=== PATIENT | female | born 1985 | race Hispanic/Latino ===

== ENCOUNTER 2017-09-25 17:53 | Outpatient (CLI) | payer OTHER ==
[2017-09-25 19:18] LABS: Bilirubin,Urine NEG (Negative); Blood,Urine NEG (Negative); Color,Urine Yellow (Yellow); Mucus,Urine FEW /HPF; Protein,Urine <15 mg/dL mg/dL (Negative); RBC,Urine < 1.0 /HPF (0.0-6.0); Urobilinogen,Urine < 2.0 mg/dL (<2.0)
[2017-09-25 19:31] LABS: Hematocrit 30.5 % (30.3-42.9); Hemoglobin 10.6 gm/dl (10.1-14.3); Mean Corpuscular HGB Conc 35 % (30-34); Mean Corpuscular Hemoglobin 31 pg (28-32); Mean Corpuscular Volume 89 fl (79-97); Platelet Count 269 K/mm3 (140-440); Red Blood Count 3.44 M/mm3 (3.65-5.03); Red Cell Distribution Width 14.7 % (13.2-15.2)
[2017-09-25 19:44] LABS: Alanine Aminotransferase 55 units/L (7-56)
[2017-09-25 20:22] VITALS: BP 110/71
== END 2017-09-25 20:40 | disposition home or self-care (01) ==
LOC: TRG 17:53
PROVIDERS: ATTEND Obstetrics & Gynecology
DX: O47.1 False labor at or after 37 completed weeks of gestation (principal); Z3A.38 38 weeks gestation of pregnancy; O99.333 Smoking (tobacco) complicating pregnancy, third trimester
CPT/HCPCS: 36415; 59025; 81001; 82565; 83615; 84450; 84460; 85027

== ENCOUNTER 2017-09-28 23:05 | Outpatient (CLI) | payer OTHER ==
[2017-09-28 23:40] VITALS: BP 127/85
--- NOTE | 2017-09-29 00:42 | Ultrasound Report ---
FINAL REPORT PROCEDURE: US OB BPP WO NON-STRESS TECHNIQUE: Sonographic evaluation for breathing, movement, tone, and amniotic fluid volume was performed. HISTORY: Decreased motion. COMPARISON: No prior studies are available for comparison. FINDINGS: Given clinical age: 39 weeks. position: Cephalic. heart rate: 140 beats per minute Amniotic fluid volume: Normal-score 2. At least one vertical pocket > 2 cm or more in vertical axis. One measured vertical pocket is 4.47 cm. breathing: Normal-score 2. movement: Normal-score 2. tone: Normal. Score: 8 of 8. IMPRESSION: Normal biophysical profile.
== END 2017-09-29 00:38 | disposition home or self-care (01) ==
LOC: TRG 23:05
PROVIDERS: ATTEND Obstetrics & Gynecology
DX: O47.1 False labor at or after 37 completed weeks of gestation (principal); O99.333 Smoking (tobacco) complicating pregnancy, third trimester; Z3A.38 38 weeks gestation of pregnancy
CPT/HCPCS: 59025; 76819

== ENCOUNTER 2017-10-11 18:47 | Inpatient (IN) | payer OTHER ==
[2017-10-11] MEDS ORDERED: SUBLIMAZE IV PRN (19:48)
[2017-10-11] MEDS ORDERED: STADOL IV PRN (19:48)
[2017-10-11] MEDS ORDERED: XYLOCAINE 2% INFILTRATI ONE (19:48)
[2017-10-11] MEDS ORDERED: NARCAN 0.4 MG/1 ML IV PRN (19:48)
[2017-10-11] MEDS ORDERED: ePHEDrine SULFATE IV PRN (19:48)
[2017-10-11] MEDS ORDERED: BRETHINE IVP PRN (19:48)
[2017-10-11] MEDS ORDERED: POLYCILLIN/NS 2 GM/100 ML 2 GM/100 ML BAG IV ONE (19:48)
[2017-10-11] MEDS ORDERED: MINERAL OIL PO PRN (19:48)
[2017-10-11] MEDS ORDERED: ZOFRAN IV PRN (19:48)
[2017-10-11] MEDS ORDERED: BRETHINE SUB-Q PRN (19:48)
[2017-10-11] MEDS ORDERED: NITRATEST PAPER MC ONE (20:00)
[2017-10-11] MEDS ORDERED: PITOCin/NS 30 UNIT/500ML 30 UNITS/500 ML BAG IV SCH (20:00)
[2017-10-11] MEDS ORDERED: PITOCin/NS 20 UNIT/1000ML DRIP 20 UNITS/1,000 ML BAG IV SCH (20:00)
--- NOTE | 2017-10-11 20:02 | History and Physical Report ---
History of Present Illness Date of examination: 10/11/17 Chief complaint: SROM at 2030 last pm and contractions History of present illness: Past History : 7 Living Children: 0 Spont. 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 of genital herpes: no Partner hx. of genital herpes: no Varicella/Chicken Pox Status: Previous Disease TB Risk: no Genetic History Congenital Heart Defect: Mom: no Dad: no Navin Disease: Mom: no Dad: no Thalassemia Mom: no Dad: no Neural Tube Defect Mom: no Dad: no Down's Syndrome Mom: no Dad: no Rolando-Sachs Mom: no Dad: no Sickle Cell Disease/Trait Mom: no Dad: no Hemophilia Mom: no Dad: no Muscular Dystrophy Mom: no Dad: no Cystic Fibrosis Mom: no Dad: no [place] Chorea Mom: no Dad: no Mental Retardation Mom: no Dad: no Fragile X Mom: no Dad: no Other Genetic/Chromosomal Disorder Mom: no Dad: no Child w/other defect Mom: no Dad: no Comments/Counseling: FOB has a child with Autism Enviromental Exposures Xray Exposure: no Medication, drug, or alcohol use since LMP: no Chemical/Other Exposure: no Exposure to Cat Liter: no Hx of Parvovirus (Fifth Disease): no Occupational Exposure to Children: none Active Medications (reviewed today): PROMETHAZINE HCL 25 MG RECTAL SUPPOSITORY (PROMETHAZINE HCL) 1 per rectum q6hrs prn PROMETHAZINE HCL 12.5 MG ORAL TABLET (PROMETHAZINE HCL) 1 po q 6 hrs prn nausea PROZAC () ADDERALL () Current Allergies (reviewed today): No known allergies Past History - Obstetrical History Expected Date of Delivery: 10/08/17 Actual Gestation: 40 Week(s) 3 Day(s) : 7 Spontaneous Abortions: 6 Medications and Allergies Allergies Allergy/AdvReac Type Severity Reaction Status Date / Time coconut Allergy Anaphylaxis Unverified 10/11/17 18:48 Home Medications Medication Instructions Recorded Confirmed Last Taken Type Vit-Fe Fumar-FA [ 1 tab PO QDAY 09/25/17 09/25/17 09/25/17 History Vitamin] Active Meds: Active Medications Butorphanol Tartrate (Stadol) 2 mg IV Q2H PRN PRN Reason: Pain , Severe (7-10) Ephedrine Sulfate (Ephedrine Sulfate) 10 mg IV Q2M PRN PRN Reason: Hypotension Fentanyl (Sublimaze) 100 mcg IV Q2H PRN PRN Reason: Labor Pain Ampicillin Sodium (Ampicillin/Ns 1 Gm/50 Ml) 1 gm in 50 mls @ 100 mls/hr IV Q4HR MOODY; Protocol Ampicillin Sodium (Polycillin/Ns 2 Gm/100 Ml) 2 gm in 100 mls @ 100 mls/hr IV ONCE ONE; Protocol Stop: 10/11/17 20:47 Lactated Ringer's (Lactated Ringers) 1,000 mls @ 125 mls/hr IV DIRECT MOODY Oxytocin/Sodium Chloride (Pitocin/Ns 20 Unit/1000ml Drip) 20 units in 1,000 mls @ 125 mls/hr IV DIRECT MOODY Oxytocin/Sodium Chloride (Pitocin/Ns 30 Unit/500ml) 30 units in 500 mls @ 1 mls /hr IV TITR MOODY; Protocol Lidocaine (Xylocaine 2%) 20 ml INFILTRATI ONCE ONE Stop: 10/11/17 19:49 Mineral Oil (Mineral Oil) 30 ml PO QHS PRN PRN Reason: Constipation Naloxone HCl (Narcan 0.4 Mg/1 Ml) 0.1 mg IV Q2MIN PRN PRN Reason: Res Rate </= 8 or 02 SAT < 92% Ondansetron HCl (Zofran) 4 mg IV Q8H PRN PRN Reason: Nausea And Vomiting Review of Systems All systems: negative Genitourinary: leakage of fluid, contractions - Vital Signs Vital signs: Vital Signs Pulse Pulse Ox 110 H 98 10/11/17 19:23 10/11/17 19:23 Temp Pulse Resp BP Pulse Ox 97.7 F 112 H 20 137/81 98 10/11/17 19:26 10/11/17 19:38 10/11/17 19:26 10/11/17 19:33 10/11/17 19:38 - Physical Exam Breasts: Positive: deferred Lungs: Positive: Normal air movement Genitourinary (Female): Positive: normal external genitalia, normal perenium Vulva: both: normal Vagina: Positive: normal moisture, other (+fern) Uterus: Positive: enlarged Anus/Rectum: Positive: normal perianal skin Extremities: Positive: normal. Negative: tenderness, edema Deep Tendon Reflex Grade: Normal +2 - Obstetrical FHR: category 1 Cervical Dilatation: 1.5 Cervical Effacement Percentage: 30 station: -1 Uterine Contraction Frequency (min): 7-8 Uterine Contraction Pattern: Irregular Results All other labs normal. Assessment and Plan - Patient Problems (1) 40 weeks gestation of Current Visit: Yes Status: Acute (2) Prolonged rupture of membranes Current Visit: Yes Status: Acute Plan to address problem: Will ripened cervix with low dose pitocin Will start Ampicillin since prolonged ROM and unknown GBS (3) Bipolar disease during Current Visit: Yes Status: Chronic (4) Smoker Current Visit: Yes Status: Chronic (5) History of marijuana use Current Visit: Yes Status: Acute Plan to address problem: She's was informed a UDS will be performed (6) Elevated blood pressure reading Current Visit: Yes Status: Acute Plan to address problem: PIH labs to be performed
[2017-10-11 20:10] LABS: Hematocrit 30.7 % (30.3-42.9); Hemoglobin 10.9 gm/dl (10.1-14.3); Mean Corpuscular HGB Conc 35 % (30-34); Mean Corpuscular Hemoglobin 32 pg (28-32); Mean Corpuscular Volume 89 fl (79-97); Platelet Count 268 K/mm3 (140-440); Red Blood Count 3.45 M/mm3 (3.65-5.03); Red Cell Distribution Width 14.6 % (13.2-15.2)
[2017-10-11 20:22] LABS: Bacteria,Urine 1+ /HPF (Negative); Bilirubin,Urine NEG (Negative); Blood,Urine NEG (Negative); Color,Urine Yellow (Yellow); Mucus,Urine FEW /HPF; Protein,Urine <15 mg/dL mg/dL (Negative); Urobilinogen,Urine < 2.0 mg/dL (<2.0)
[2017-10-11] MEDS: LACTATED RINGERS 1,000 ML IV SCH (20:26)
[2017-10-11 20:29] LABS: Amphetamine Screen,Urine PRESUMPTIVE NEGATIVE; Benzodiazepines Screen,Urine PRESUMPTIVE NEGATIVE; Cannabinoid Screen,Urine PRESUMPTIVE NEGATIVE; Cocaine Screen,Urine PRESUMPTIVE NEGATIVE; Methadone Screen,Urine PRESUMPTIVE NEGATIVE; Opiate Screen,Urine PRESUMPTIVE NEGATIVE
[2017-10-11 20:30] LABS: Alanine Aminotransferase 94 units/L (7-56); Uric Acid 6.7 mg/dL (3.5-7.6)
[2017-10-11] MEDS ORDERED: BICITRA PO ONE (22:37)
[2017-10-12] MEDS: AMPICILLIN/NS 1 GM/50 ML 1 GM/50 ML BAG IV SCH ×3 (00:33→09:13)
[2017-10-12] MEDS ORDERED: AMBIEN PO PRN (00:39)
[2017-10-12] MEDS ORDERED: PITOCin/NS 30 UNIT/500ML 30 UNITS/500 ML BAG IV SCH (05:00)
--- NOTE | 2017-10-12 05:17 | Progress Note ---
Assessment and Plan - Patient Problems (1) Prolonged rupture of membranes Onset Date: ~10/12/17 Current Visit: Yes Status: Acute Plan to address problem: Pt OOB to void. SVE 3,90,-1 Meconium stained fluid noted ISE/IUPC placed. Pt made aware of findings and that NICU will attend the delivery. Pit increased per protocol. Re-eval as needed. Subjective - Subjective Date of service: 10/12/17 (OOB to toilet) Patient reports: loss of fluid (moderate meconium), movement normal Objective - Vital Signs Vital Signs: Vital Signs - 12hr 10/11/17 10/11/17 10/11/17 19:23 19:24 19:26 Temperature 97.7 F Pulse Rate 110 H 109 H Respiratory 20 Rate Blood Pressure 135/94 O2 Sat by Pulse 98 Oximetry 10/11/17 10/11/17 10/11/17 19:28 19:29 19:33 Temperature Pulse Rate 108 H 113 H 108 H Respiratory Rate Blood Pressure 142/87 137/81 O2 Sat by Pulse 99 98 Oximetry 10/11/17 10/11/17 10/11/17 19:38 20:10 20:25 Temperature 97.8 F Pulse Rate 112 H 112 H Respiratory Rate Blood Pressure 130/75 O2 Sat by Pulse 98 Oximetry 10/11/17 10/11/17 10/12/17 23:20 23:22 03:24 Temperature 97.6 F Pulse Rate 91 H 83 Respiratory Rate Blood Pressure 134/73 127/80 O2 Sat by Pulse Oximetry - Exam Breasts: deferred Cardiovascular: Regular rate Lungs: Normal air movement Abdomen: Present: normal appearance, soft. Absent: distention, tenderness Uterus: Present: normal FHR: auscultation normal, category 1 Uterine Contraction Monitor Mode: Internal Cervical Dilatation: 3 (internals placed) Cervical Effacement Percentage: 90 station: -1 Uterine Contraction Pattern: Regular Uterine Tone Measurement Phase: Resting Uterine Contraction Intensity: Mild - Labs Labs: Abnormal Labs 10/11/17 10/11/17 10/11/17 19:40 19:40 19:40 RBC 3.45 L MCHC 35 H Creatinine 0.6 L AST 82 H ALT 94 H Lactate Dehydrogenase 283 H Urine WBC (Auto) 16.0 H Laboratory Results - last 24 hr 10/11/17 10/11/17 10/11/17 19:40 19:40 19:40 WBC 8.1 RBC 3.45 L Hgb 10.9 Hct 30.7 MCV 89 MCH 32 MCHC 35 H RDW 14.6 Plt Count 268 Creatinine Estimated GFR Uric Acid AST ALT Lactate Dehydrogenase Urine Color Urine Turbidity Urine pH Ur Specific [place] Urine Protein Urine Glucose (UA) Urine Ketones Urine Blood Urine Nitrite Urine Bilirubin Urine Urobilinogen Ur Leukocyte Esterase Urine WBC (Auto) Urine RBC (Auto) U Epithel Cells (Auto) Urine Bacteria (Auto) Urine Mucus Urine Opiates Screen Urine Methadone Screen Ur Barbiturates Screen Ur Phencyclidine Scrn Ur Amphetamines Screen U Benzodiazepines Scrn Urine Cocaine Screen U Marijuana (THC) Screen Drugs of Abuse Note HIV 1&2 Antibody Rapid Non react HIV P24 Antigen Non react Blood Type O POSITIVE Antibody Screen Negative 10/11/17 10/11/17 10/11/17 19:40 19:40 19:40 WBC RBC Hgb Hct MCV MCH MCHC RDW Plt Count Creatinine 0.6 L Estimated GFR > 60 Uric Acid 6.7 AST 82 H ALT 94 H Lactate Dehydrogenase 283 H Urine Color Yellow Urine Turbidity Clear Urine pH 5.0 Ur Specific [place] 1.020 Urine Protein <15 mg/dl Urine Glucose (UA) >=500 Urine Ketones Neg Urine Blood Neg Urine Nitrite Neg Urine Bilirubin Neg Urine Urobilinogen < 2.0 Ur Leukocyte Esterase Mod Urine WBC (Auto) 16.0 H Urine RBC (Auto) 4.0 U Epithel Cells (Auto) 8.0 Urine Bacteria (Auto) 1+ Urine Mucus Few Urine Opiates Screen Presumptive negative Urine Methadone Screen Presumptive negative Ur Barbiturates Screen Presumptive negative Ur Phencyclidine Scrn Presumptive negative Ur Amphetamines Screen Presumptive negative U Benzodiazepines Scrn Presumptive negative Urine Cocaine Screen Presumptive negative U Marijuana (THC) Screen Presumptive negative Drugs of Abuse Note Disclamer HIV 1&2 Antibody Rapid HIV P24 Antigen Blood Type Antibody Screen
[2017-10-12] MEDS ORDERED: NARCAN 2 MG/2 ML IV PRN (06:25)
[2017-10-12] MEDS ORDERED: ePHEDrine SULFATE IV PRN (06:25)
--- NOTE | 2017-10-12 06:26 | Anesthesia Consultation ---
Anesthesia Consult and Med Hx Date of service: 10/12/17 - Airway Anesthetic Teeth Evaluation: Good ROM Head & Neck: Adequate Mental/Hyoid Distance: Adequate Mallampati Class: Class II Intubation Access Assessment: Probably Good - Pulmonary Exam CTA: Yes - Cardiac Exam Cardiac Exam: RRR - Pre-Operative Health Status ASA Pre-Surgery Classification: ASA2 Proposed Anesthetic Plan: Epidural - Pulmonary Hx Asthma: No - Cardiovascular System Hx Hypertension: No - Central Nervous System Hx Seizures: No Hx Psychiatric Problems: Yes (depression) - Endocrine Hx Renal Disease: No Hx Hypothyroidism: No Hx Hyperthyroidism: No - Hematic Hx Anemia: No Hx Sickle Cell Disease: No - Other Systems Hx Alcohol Use: No
[2017-10-12] MEDS ORDERED: fentaNYL-BUPIV 2 MCG/ML-0.125% 200 MCG/100 ML BAG EPIDURAL SCH (07:00)
[2017-10-12] MEDS ORDERED: TYLENOL PO PRN ×5 (07:36→16:03)
--- NOTE | 2017-10-12 08:55 | Progress Note ---
Assessment and Plan - Patient Problems (1) Prolonged rupture of membranes Onset Date: ~10/12/17 Current Visit: Yes Status: Acute Plan to address problem: Pt comfortable with epidural Pit @ 24mu FHR Cat 1 SVE No chg X 2 hours. Pt aware of concerns @ lack of cervical chg. Will cont. POC and re-eval 1 hour. Subjective - Subjective Date of service: 10/12/17 (no c/o voiced) Principal diagnosis: IUP @ 40 weeks Prolong rupture of membranes Meconium Patient reports: loss of fluid (moderate meconium), movement normal Objective - Vital Signs Vital Signs: Vital Signs - 12hr 10/11/17 10/11/17 10/12/17 23:20 23:22 03:24 Temperature 97.6 F Pulse Rate 91 H 83 Respiratory Rate Blood Pressure 134/73 127/80 Blood Pressure [Right] O2 Sat by Pulse Oximetry 10/12/17 10/12/17 10/12/17 05:25 05:35 06:35 Temperature 97.9 F Pulse Rate 88 92 H Respiratory 18 Rate Blood Pressure 132/81 Blood Pressure [Right] O2 Sat by Pulse 100 Oximetry 10/12/17 10/12/17 10/12/17 06:36 06:39 06:40 Temperature Pulse Rate 90 91 H 91 H Respiratory Rate Blood Pressure 139/90 133/95 Blood Pressure [Right] O2 Sat by Pulse 89 100 Oximetry 10/12/17 10/12/17 10/12/17 06:41 06:43 06:45 Temperature 97.6 F Pulse Rate 87 86 Respiratory 18 Rate Blood Pressure 134/96 140/101 Blood Pressure [Right] O2 Sat by Pulse Oximetry 10/12/17 10/12/17 10/12/17 06:46 06:49 06:51 Temperature Pulse Rate 92 H 87 89 Respiratory Rate Blood Pressure 143/95 144/99 155/100 Blood Pressure [Right] O2 Sat by Pulse 100 100 Oximetry 10/12/17 10/12/17 10/12/17 06:53 06:57 06:58 Temperature Pulse Rate 27 L 85 86 Respiratory Rate Blood Pressure 128/72 Blood Pressure [Right] O2 Sat by Pulse 85 93 Oximetry 10/12/17 10/12/17 10/12/17 06:59 07:01 07:03 Temperature Pulse Rate 86 90 85 Respiratory Rate Blood Pressure 119/66 115/60 120/68 Blood Pressure [Right] O2 Sat by Pulse 100 Oximetry 10/12/17 10/12/17 10/12/17 07:05 07:07 07:08 Temperature Pulse Rate 83 85 85 Respiratory Rate Blood Pressure 120/72 130/83 Blood Pressure [Right] O2 Sat by Pulse 100 Oximetry 10/12/17 10/12/17 10/12/17 07:09 07:11 07:13 Temperature Pulse Rate 84 83 83 Respiratory Rate Blood Pressure 131/80 134/87 137/80 Blood Pressure [Right] O2 Sat by Pulse 100 Oximetry 10/12/17 10/12/17 10/12/17 07:16 07:17 07:18 Temperature Pulse Rate 90 84 85 Respiratory Rate Blood Pressure 111/75 118/75 Blood Pressure [Right] O2 Sat by Pulse 100 Oximetry 10/12/17 10/12/17 10/12/17 07:19 07:21 07:23 Temperature Pulse Rate 83 86 96 H Respiratory Rate Blood Pressure 119/79 117/67 116/73 Blood Pressure [Right] O2 Sat by Pulse 100 Oximetry 10/12/17 10/12/17 10/12/17 07:28 07:33 07:38 Temperature Pulse Rate 86 85 93 H Respiratory Rate Blood Pressure Blood Pressure [Right] O2 Sat by Pulse 100 100 100 Oximetry 10/12/17 10/12/17 10/12/17 07:43 07:48 07:52 Temperature 96.9 F L Pulse Rate 85 86 85 Respiratory 20 Rate Blood Pressure Blood Pressure 116/82 [Right] O2 Sat by Pulse 100 100 98 Oximetry - Exam Breasts: deferred Cardiovascular: Regular rate Lungs: Normal air movement Abdomen: Present: normal appearance, soft. Absent: distention, tenderness Uterus: Present: normal FHR: auscultation normal, category 1 Uterine Contraction Monitor Mode: Internal Cervical Dilatation: 3 (No chg) Cervical Effacement Percentage: 90 station: -1 Uterine Contraction Pattern: Regular Uterine Tone Measurement Phase: Resting Uterine Contraction Intensity: Moderate Extremities: normal Deep Tendon Reflex Grade: Normal +2 - Labs Labs: Abnormal Labs 10/11/17 10/11/17 10/11/17 19:40 19:40 19:40 RBC 3.45 L MCHC 35 H Creatinine 0.6 L AST 82 H ALT 94 H Lactate Dehydrogenase 283 H Urine WBC (Auto) 16.0 H Laboratory Results - last 24 hr 10/11/17 10/11/17 10/11/17 19:40 19:40 19:40 WBC 8.1 RBC 3.45 L Hgb 10.9 Hct 30.7 MCV 89 MCH 32 MCHC 35 H RDW 14.6 Plt Count 268 Creatinine Estimated GFR Uric Acid AST ALT Lactate Dehydrogenase Urine Color Urine Turbidity Urine pH Ur Specific [place] Urine Protein Urine Glucose (UA) Urine Ketones Urine Blood Urine Nitrite Urine Bilirubin Urine Urobilinogen Ur Leukocyte Esterase Urine WBC (Auto) Urine RBC (Auto) U Epithel Cells (Auto) Urine Bacteria (Auto) Urine Mucus Urine Opiates Screen Urine Methadone Screen Ur Barbiturates Screen Ur Phencyclidine Scrn Ur Amphetamines Screen U Benzodiazepines Scrn Urine Cocaine Screen U Marijuana (THC) Screen Drugs of Abuse Note HIV 1&2 Antibody Rapid Non react HIV P24 Antigen Non react Blood Type O POSITIVE Antibody Screen Negative 10/11/17 10/11/17 10/11/17 19:40 19:40 19:40 WBC RBC Hgb Hct MCV MCH MCHC RDW Plt Count Creatinine 0.6 L Estimated GFR > 60 Uric Acid 6.7 AST 82 H ALT 94 H Lactate Dehydrogenase 283 H Urine Color Yellow Urine Turbidity Clear Urine pH 5.0 Ur Specific [place] 1.020 Urine Protein <15 mg/dl Urine Glucose (UA) >=500 Urine Ketones Neg Urine Blood Neg Urine Nitrite Neg Urine Bilirubin Neg Urine Urobilinogen < 2.0 Ur Leukocyte Esterase Mod Urine WBC (Auto) 16.0 H Urine RBC (Auto) 4.0 U Epithel Cells (Auto) 8.0 Urine Bacteria (Auto) 1+ Urine Mucus Few Urine Opiates Screen Presumptive negative Urine Methadone Screen Presumptive negative Ur Barbiturates Screen Presumptive negative Ur Phencyclidine Scrn Presumptive negative Ur Amphetamines Screen Presumptive negative U Benzodiazepines Scrn Presumptive negative Urine Cocaine Screen Presumptive negative U Marijuana (THC) Screen Presumptive negative Drugs of Abuse Note Disclamer HIV 1&2 Antibody Rapid HIV P24 Antigen Blood Type Antibody Screen
--- NOTE | 2017-10-12 10:52 | Progress Note ---
Assessment and Plan Pt c/o pain and pressure. SVE 7,100,0 Pit @ 32mu Epidural bolus called for Re- eval as needed. - Patient Problems (1) Prolonged rupture of membranes Onset Date: ~10/12/17 Current Visit: Yes Status: Acute Subjective - Subjective Date of service: 10/12/17 (pt c/o pain and pressure) Principal diagnosis: IUP @ 40 weeks Prolong rupture of membranes Meconium Patient reports: loss of fluid (moderate meconium), movement normal Objective - Vital Signs Vital Signs: Vital Signs - 12hr 10/11/17 10/11/17 10/12/17 23:20 23:22 03:24 Temperature 97.6 F Pulse Rate 91 H 83 Respiratory Rate Blood Pressure 134/73 127/80 Blood Pressure [Right] O2 Sat by Pulse Oximetry 10/12/17 10/12/17 10/12/17 05:25 05:35 06:35 Temperature 97.9 F Pulse Rate 88 92 H Respiratory 18 Rate Blood Pressure 132/81 Blood Pressure [Right] O2 Sat by Pulse 100 Oximetry 10/12/17 10/12/17 10/12/17 06:36 06:39 06:40 Temperature Pulse Rate 90 91 H 91 H Respiratory Rate Blood Pressure 139/90 133/95 Blood Pressure [Right] O2 Sat by Pulse 89 100 Oximetry 10/12/17 10/12/17 10/12/17 06:41 06:43 06:45 Temperature 97.6 F Pulse Rate 87 86 Respiratory 18 Rate Blood Pressure 134/96 140/101 Blood Pressure [Right] O2 Sat by Pulse Oximetry 10/12/17 10/12/17 10/12/17 06:46 06:49 06:51 Temperature Pulse Rate 92 H 87 89 Respiratory Rate Blood Pressure 143/95 144/99 155/100 Blood Pressure [Right] O2 Sat by Pulse 100 100 Oximetry 10/12/17 10/12/17 10/12/17 06:53 06:57 06:58 Temperature Pulse Rate 27 L 85 86 Respiratory Rate Blood Pressure 128/72 Blood Pressure [Right] O2 Sat by Pulse 85 93 Oximetry 10/12/17 10/12/17 10/12/17 06:59 07:01 07:03 Temperature Pulse Rate 86 90 85 Respiratory Rate Blood Pressure 119/66 115/60 120/68 Blood Pressure [Right] O2 Sat by Pulse 100 Oximetry 10/12/17 10/12/17 10/12/17 07:05 07:07 07:08 Temperature Pulse Rate 83 85 85 Respiratory Rate Blood Pressure 120/72 130/83 Blood Pressure [Right] O2 Sat by Pulse 100 Oximetry 10/12/17 10/12/17 10/12/17 07:09 07:11 07:13 Temperature Pulse Rate 84 83 83 Respiratory Rate Blood Pressure 131/80 134/87 137/80 Blood Pressure [Right] O2 Sat by Pulse 100 Oximetry 10/12/17 10/12/17 10/12/17 07:16 07:17 07:18 Temperature Pulse Rate 90 84 85 Respiratory Rate Blood Pressure 111/75 118/75 Blood Pressure [Right] O2 Sat by Pulse 100 Oximetry 10/12/17 10/12/17 10/12/17 07:19 07:21 07:23 Temperature Pulse Rate 83 86 96 H Respiratory Rate Blood Pressure 119/79 117/67 116/73 Blood Pressure [Right] O2 Sat by Pulse 100 Oximetry 10/12/17 10/12/17 10/12/17 07:28 07:33 07:38 Temperature Pulse Rate 86 85 93 H Respiratory Rate Blood Pressure Blood Pressure [Right] O2 Sat by Pulse 100 100 100 Oximetry 10/12/17 10/12/17 10/12/17 07:43 07:48 07:52 Temperature 96.9 F L Pulse Rate 85 86 85 Respiratory 20 Rate Blood Pressure Blood Pressure 116/82 [Right] O2 Sat by Pulse 100 100 98 Oximetry 10/12/17 10/12/17 10/12/17 10:11 10:13 10:18 Temperature Pulse Rate 81 76 80 Respiratory Rate Blood Pressure 120/78 114/79 116/67 Blood Pressure [Right] O2 Sat by Pulse Oximetry 10/12/17 10/12/17 10/12/17 10:21 10:26 10:27 Temperature Pulse Rate 75 81 85 Respiratory Rate Blood Pressure 122/76 117/71 115/70 Blood Pressure [Right] O2 Sat by Pulse Oximetry 10/12/17 10/12/17 10/12/17 10:29 10:30 10:31 Temperature Pulse Rate 83 81 83 Respiratory Rate Blood Pressure 124/73 126/83 Blood Pressure [Right] O2 Sat by Pulse 100 Oximetry 10/12/17 10/12/17 10/12/17 10:33 10:35 10:37 Temperature Pulse Rate 82 78 79 Respiratory Rate Blood Pressure 117/75 124/80 120/84 Blood Pressure [Right] O2 Sat by Pulse 99 Oximetry 10/12/17 10/12/17 10/12/17 10:39 10:40 10:41 Temperature Pulse Rate 77 83 81 Respiratory Rate Blood Pressure 123/75 124/78 Blood Pressure [Right] O2 Sat by Pulse 100 Oximetry 10/12/17 10/12/17 10/12/17 10:44 10:45 10:47 Temperature Pulse Rate 57 L 81 80 Respiratory Rate Blood Pressure 124/75 Blood Pressure [Right] O2 Sat by Pulse 83 L 100 Oximetry 10/12/17 10/12/17 10/12/17 10:49 10:50 10:51 Temperature Pulse Rate 82 84 83 Respiratory Rate Blood Pressure 126/81 127/81 Blood Pressure [Right] O2 Sat by Pulse 100 Oximetry 10/12/17 10/12/17 10:52 10:53 Temperature Pulse Rate 86 86 Respiratory Rate Blood Pressure 132/86 Blood Pressure [Right] O2 Sat by Pulse 86 Oximetry - Exam Breasts: deferred Cardiovascular: Regular rate Lungs: Normal air movement Abdomen: Present: normal appearance, soft. Absent: distention, tenderness Uterus: Present: normal FHR: auscultation normal, category 1 Uterine Contraction Monitor Mode: Internal Cervical Dilatation: 7 Cervical Effacement Percentage: 100 station: 0 Uterine Contraction Pattern: Regular Uterine Tone Measurement Phase: Resting Uterine Contraction Intensity: Moderate Extremities: edema Deep Tendon Reflex Grade: Normal +2 - Labs Labs: Abnormal Labs 10/11/17 10/11/17 10/11/17 19:40 19:40 19:40 RBC 3.45 L MCHC 35 H Creatinine 0.6 L AST 82 H ALT 94 H Lactate Dehydrogenase 283 H Urine WBC (Auto) 16.0 H Laboratory Results - last 24 hr 10/11/17 10/11/17 10/11/17 19:40 19:40 19:40 WBC 8.1 RBC 3.45 L Hgb 10.9 Hct 30.7 MCV 89 MCH 32 MCHC 35 H RDW 14.6 Plt Count 268 Creatinine Estimated GFR POC Glucose Uric Acid AST ALT Lactate Dehydrogenase Urine Color Urine Turbidity Urine pH Ur Specific [place] Urine Protein Urine Glucose (UA) Urine Ketones Urine Blood Urine Nitrite Urine Bilirubin Urine Urobilinogen Ur Leukocyte Esterase Urine WBC (Auto) Urine RBC (Auto) U Epithel Cells (Auto) Urine Bacteria (Auto) Urine Mucus Urine Opiates Screen Urine Methadone Screen Ur Barbiturates Screen Ur Phencyclidine Scrn Ur Amphetamines Screen U Benzodiazepines Scrn Urine Cocaine Screen U Marijuana (THC) Screen Drugs of Abuse Note HIV 1&2 Antibody Rapid Non react HIV P24 Antigen Non react Blood Type O POSITIVE Antibody Screen Negative 10/11/17 10/11/17 10/11/17 19:40 19:40 19:40 WBC RBC Hgb Hct MCV MCH MCHC RDW Plt Count Creatinine 0.6 L Estimated GFR > 60 POC Glucose Uric Acid 6.7 AST 82 H ALT 94 H Lactate Dehydrogenase 283 H Urine Color Yellow Urine Turbidity Clear Urine pH 5.0 Ur Specific [place] 1.020 Urine Protein <15 mg/dl Urine Glucose (UA) >=500 Urine Ketones Neg Urine Blood Neg Urine Nitrite Neg Urine Bilirubin Neg Urine Urobilinogen < 2.0 Ur Leukocyte Esterase Mod Urine WBC (Auto) 16.0 H Urine RBC (Auto) 4.0 U Epithel Cells (Auto) 8.0 Urine Bacteria (Auto) 1+ Urine Mucus Few Urine Opiates Screen Presumptive negative Urine Methadone Screen Presumptive negative Ur Barbiturates Screen Presumptive negative Ur Phencyclidine Scrn Presumptive negative Ur Amphetamines Screen Presumptive negative U Benzodiazepines Scrn Presumptive negative Urine Cocaine Screen Presumptive negative U Marijuana (THC) Screen Presumptive negative Drugs of Abuse Note Disclamer HIV 1&2 Antibody Rapid HIV P24 Antigen Blood Type Antibody Screen 10/12/17 09:13 WBC RBC Hgb Hct MCV MCH MCHC RDW Plt Count Creatinine Estimated GFR POC Glucose 89 Uric Acid AST ALT Lactate Dehydrogenase Urine Color Urine Turbidity Urine pH Ur Specific [place] Urine Protein Urine Glucose (UA) Urine Ketones Urine Blood Urine Nitrite Urine Bilirubin Urine Urobilinogen Ur Leukocyte Esterase Urine WBC (Auto) Urine RBC (Auto) U Epithel Cells (Auto) Urine Bacteria (Auto) Urine Mucus Urine Opiates Screen Urine Methadone Screen Ur Barbiturates Screen Ur Phencyclidine Scrn Ur Amphetamines Screen U Benzodiazepines Scrn Urine Cocaine Screen U Marijuana (THC) Screen Drugs of Abuse Note HIV 1&2 Antibody Rapid HIV P24 Antigen Blood Type Antibody Screen
[2017-10-12] MEDS: LACTATED RINGERS 1,000 ML IV SCH (11:44)
[2017-10-12] MEDS ORDERED: CYTOTEC ONE (12:30)
[2017-10-12] MEDS ORDERED: AMMONIA INHALANT IH ONE (13:01)
[2017-10-12] MEDS ORDERED: NACL 0.9% 500 ML 500 ML IV ONE (13:18)
[2017-10-12 13:27] LABS: Hematocrit 27.2 % (30.3-42.9); Hemoglobin 9.3 gm/dl (10.1-14.3); Mean Corpuscular HGB Conc 34 % (30-34); Mean Corpuscular Hemoglobin 31 pg (28-32); Mean Corpuscular Volume 90 fl (79-97); Platelet Count 265 K/mm3 (140-440); Red Blood Count 3.03 M/mm3 (3.65-5.03); Red Cell Distribution Width 14.6 % (13.2-15.2)
[2017-10-12] MEDS ORDERED: CYTOTEC PR ONE (13:27)
--- NOTE | 2017-10-12 13:50 | Procedure Note ---
OB Delivery Note - Delivery Date of Delivery: 10/12/17 Concession Worker: RADHA MOTTA Estimated blood loss: 1000cc - Vaginal Delivery presentation: vertex Delivery position: OA Intrapartum events: meconium, hemorrhage, other(please specify) (Pt has mental health concerns) Delivery induction: oxytocin Delivery augmentation: pitocin Delivery monitor: internal FHT, internal uterine Route of delivery: Delivery placenta: expressed, uterine exploration Delivery cord: 3 umbilical vessels Episiotomy: none Delivery laceration: none Anesthesia: epidural Delivery comments: Pt c/o pressure SVE 10,100,+2 live born male 1221 over intact perineum. Crying vigorously. Baby placed skin to skin with mom. Cord blood obtained Placenta manual extraction. Lower uterine segment boggy Pit IVFs, Cytotec 800mcg [place], uterus explored: several lg clots and amnion/chorion removed. Bleeding improved with continued massage and removal again of several lg clots. Pt tolerated exploration of uterus. Explained all findings and procedures to pt and family. 8/9, EBL >1,000cc , Wgt 8- made aware of situation. 1250:Called urgently to LDR by RN. Pt vomited and fainted. BP 70/35 pulse 64. Pt responded to me on my arrival, ammonia ampule used to awaken pt; IVFs bolused , stat CBC drawn. TXM and hold 2 units PRC ordered. BP 113/74 pulse 86 made aware of situation. Vaginal bleeding minimal. 1400: H&H 9.3/27.2 BP 98/70,113,20 Pt sitting up in bed taking po fluids, talking with family. No c/o voiced. FF 2fb below umb Lochia small. Pt will remain in LDR, second IV site established. Dr. Hutson consulted. - Infant A at 1 minute: 8 at 5 minutes: 9 Gender: Male (wgt 8-13)
[2017-10-12] MEDS ORDERED: MAGNESIUM SULFATE 40GM/1000ML 40 GM/1,000 ML BAG IV ONE (15:23)
[2017-10-12] MEDS ORDERED: MAGNESIUM SULFATE 4GM/100ML 4 GM/100 ML BAG IV ONE ×2 (15:23→16:00)
--- NOTE | 2017-10-12 15:25 | Event Note ---
Date: 10/12/17 ( notified me of elevated AST/ALT) Made pt and family aware of need for MGSO4 due to elevated liver enzymes. Explained neuroprotection for mom. BP 115/70-60 Pulse >100. Rice draining to BSB urine sho color. Orders in EMR All questions addressed.
[2017-10-12] MEDS ORDERED: LANSINOH TP PRN (15:41)
[2017-10-12] MEDS ORDERED: PHENERGAN PO PRN (15:41)
[2017-10-12] MEDS ORDERED: MILK OF MAGNESIA PO PRN (15:41)
[2017-10-12] MEDS ORDERED: DULCOLAX PR PRN (15:41)
[2017-10-12] MEDS ORDERED: TUCKS PAD TP PRN (15:41)
[2017-10-12] MEDS ORDERED: BENADRYL PO PRN (15:41)
[2017-10-12] MEDS ORDERED: MAGNESIUM SULFATE 40GM/1000ML 40 GM/1,000 ML BAG IV SCH (16:00)
[2017-10-12] MEDS ORDERED: SODIUM CHLORIDE FLUSH SYRINGE 10 ML IV NR (16:00)
[2017-10-12] MEDS: MOTRIN PO SCH (16:46)
[2017-10-12] MEDS: NORCO 5/325 PO PRN (16:47)
[2017-10-12 21:01] LABS: Hematocrit 22.5 % (30.3-42.9); Hemoglobin 7.6 gm/dl (10.1-14.3)
[2017-10-12] MEDS ORDERED: COLACE PO SCH (22:00)
[2017-10-13] MEDS ORDERED: M-M-R II VACCINE SUB-Q ONE (06:00)
[2017-10-13] MEDS ORDERED: BOOSTRIX IM ONE (06:00)
[2017-10-13 08:37] LABS: Hematocrit 21.1 % (30.3-42.9); Hemoglobin 6.9 gm/dl (10.1-14.3)
--- NOTE | 2017-10-13 08:51 | Progress Note ---
Assessment and Plan - Patient Problems (1) Anemia Current Visit: Yes Status: Acute Qualifiers: Other causes of anemia: acute posthemorrhagic Plan to address problem: -no sx at this time -monitor closely (2) Preeclampsia Current Visit: Yes Status: Acute Qualifiers: Trimester: third trimester Qualified Code(s): O14.93 - Unspecified pre- eclampsia, third trimester Plan to address problem: -magnesium sulfate currently infusion -will d/c this pm -monitor bp closely. Currently no indication for bp meds. (3) Single live Current Visit: Yes Status: Acute Plan to address problem: -routine pp care -d/c home in the am if AFVSS and bps are in normal ranges Subjective - Subjective Date of service: 10/13/17 Principal diagnosis: PPD #1 s/p 2)PPH 3)anemia 4)PIH Interval history: Pt doing well. NO headache, blurry vision, Nausea or vomiting. Pt is attempting to breast feed. No dizziness. Plan of care d/w pt. Will monitor h/h at this time as pt is not symptomatic. Pt agrees with plan of care at this time. Patient reports: appetite normal, voiding normally (manriquez cath draining clear urine at the bedside), pain well controlled Cecil: doing well, nursing well Objective - Vital Signs Latest vital signs: Vital Signs Temp Pulse Resp BP BP Pulse Ox 10/13/17 06:00 98.4 F 88 18 133/82 10/13/17 04:00 98.7 F 88 16 107/56 10/13/17 02:00 98.6 F 69 18 130/76 10/13/17 00:00 98.6 F 79 18 132/78 10/12/17 21:00 98.7 F 77 16 128/74 10/12/17 16:47 20 10/12/17 16:46 20 10/12/17 16:27 97 H 126/76 10/12/17 16:23 95 H 89 10/12/17 16:18 100 H 98 10/12/17 16:13 97 H 99 10/12/17 16:12 96 H 123/76 10/12/17 16:08 99 H 100 10/12/17 16:03 102 H 100 10/12/17 15:58 102 H 100 10/12/17 15:57 100 H 130/68 10/12/17 15:53 106 H 100 10/12/17 15:48 106 H 100 10/12/17 15:43 106 H 125/59 100 10/12/17 15:38 99 H 100 10/12/17 15:33 105 H 100 10/12/17 15:28 105 H 100 10/12/17 15:27 101 H 106/72 10/12/17 15:15 131 H 88 10/12/17 15:12 110 H 113/64 93 10/12/17 15:10 101 H 100 10/12/17 15:05 111 H 100 10/12/17 15:00 109 H 100 10/12/17 14:57 112 H 115/69 10/12/17 14:55 104 H 98 10/12/17 14:50 105 H 76 L 10/12/17 14:22 96 H 88 10/12/17 14:18 95 H 93 10/12/17 14:17 95 H 95 10/12/17 14:13 90 10/12/17 14:12 113 H 86 10/12/17 14:07 214 H 83 L 10/12/17 14:06 83 L 10/12/17 14:02 101 H 89 10/12/17 13:57 95 H 97 10/12/17 13:54 44 L 84 10/12/17 13:52 91 H 98/70 100 10/12/17 13:47 91 H 100 10/12/17 13:42 97 H 105/68 100 10/12/17 13:37 93 H 100 10/12/17 13:32 93 H 113/72 100 10/12/17 13:27 86 100 10/12/17 13:22 85 100 10/12/17 13:19 81 113/71 10/12/17 13:17 86 100 10/12/17 13:12 85 100 10/12/17 13:10 64 70/35 10/12/17 13:07 61 100 10/12/17 13:02 95 H 100 10/12/17 12:47 85 120/68 10/12/17 12:32 88 133/98 10/12/17 12:29 88 143/70 10/12/17 12:21 86 130/85 10/12/17 12:19 92 H 136/83 100 08/05/18 12:14 97 H 167/87 99 08/05/18 12:09 94 H 99 08/05/18 12:07 91 H 132/81 08/05/18 12:04 88 98 08/05/18 11:59 85 98 08/05/18 11:54 89 98 08/05/18 11:50 90 120/59 08/05/18 11:49 86 99 08/05/18 11:44 84 97 08/05/18 11:43 190 H 126/61 08/05/18 11:41 84 119/66 08/05/18 11:39 85 125/85 97 08/05/18 11:37 85 127/81 08/05/18 11:35 88 119/79 08/05/18 11:34 87 97 08/05/18 11:33 88 117/71 08/05/18 11:31 84 116/80 08/05/18 11:29 86 128/77 98 08/05/18 11:27 88 125/74 08/05/18 11:25 85 123/65 08/05/18 11:24 89 98 08/05/18 11:22 90 123/86 08/05/18 11:19 92 H 126/72 97 08/05/18 11:17 86 117/72 08/05/18 11:15 81 115/66 08/05/18 11:14 86 97 08/05/18 11:13 82 114/75 08/05/18 11:11 86 126/80 08/05/18 11:09 88 123/77 98 08/05/18 11:07 82 132/80 08/05/18 11:05 85 126/73 08/05/18 11:04 78 100 08/05/18 11:03 76 118/68 08/05/18 11:01 83 130/60 08/05/18 11:00 83 146/66 08/05/18 10:55 82 140/60 08/05/18 10:53 86 132/86 08/05/18 10:52 86 86 08/05/18 10:51 83 127/81 08/05/18 10:50 84 100 08/05/18 10:49 82 126/81 08/05/18 10:47 80 124/75 08/05/18 10:45 81 100 08/05/18 10:44 57 L 83 L 08/05/18 10:41 81 124/78 10/12/17 10:40 83 100 10/12/17 10:39 77 123/75 10/12/17 10:37 79 120/84 10/12/17 10:35 78 124/80 99 10/12/17 10:33 82 117/75 10/12/17 10:31 83 126/83 10/12/17 10:30 81 100 10/12/17 10:29 83 124/73 10/12/17 10:27 85 115/70 10/12/17 10:26 81 117/71 10/12/17 10:21 75 122/76 10/12/17 10:18 80 116/67 10/12/17 10:13 76 114/79 10/12/17 10:11 81 120/78 Intake and Output 10/12/17 10/13/17 10/13/17 22:59 06:59 14:59 Intake Total 500 Output Total 3600 Balance 500 -3600 Intake: Oral 200 Intake, Free Water 300 Output: Urine 3600 Indwelling Catheter 3600 Other: Total, Intake Amount 200 Total, Output Amount 800 - Exam Cardiovascular: Present: Normal S1, Normal S2 Lungs: Present: Clear to auscultation, Normal air movement Abdomen: Present: normal appearance, soft, normal bowel sounds. Absent: distention, tenderness, guarding Uterus: Present: normal, firm, fundal height below umbilicus. Absent: bogginess , tenderness Extremities: Present: normal. Absent: tenderness, edema Deep Tendon Reflex Grade: Normal +2 - Labs Labs: Abnormal lab results 10/11/17 10/12/17 10/12/17 Range/Units 19:40 13:10 20:37 RBC 3.03 L (3.65-5.03) M/mm3 Hgb 9.3 L 7.6 L (10.1-14.3) gm/dl Hct 27.2 L 22.5 L (30.3-42.9) % Magnesium (1.7-2.3) mg/dL Crossmatch See Detail 10/12/17 10/13/17 10/13/17 Range/Units 20:37 02:23 07:44 RBC (3.65-5.03) M/mm3 Hgb 6.9 L (10.1-14.3) gm/dl Hct 21.1 L (30.3-42.9) % Magnesium 3.60 H 4.10 H (1.7-2.3) mg/dL Crossmatch
[2017-10-13] MEDS: PRENATAL VITAMIN PO SCH (11:00)
[2017-10-13] MEDS: MOTRIN PO SCH ×2 (17:48→22:57)
[2017-10-13] MEDS: NORCO 5/325 PO PRN (17:48)
[2017-10-13] MEDS: FEOSOL PO SCH ×2 (17:51→22:56)
[2017-10-14] MEDS: MOTRIN PO SCH ×2 (06:03→12:30)
[2017-10-14 06:46] LABS: Basophils % (Auto) 0.4 % (0.0-1.8); Eosinophils # (Auto) 0.1 K/mm3 (0.0-0.4); Eosinophils % (Auto) 1.2 % (0.0-4.3); Hemoglobin 6.5 gm/dl (10.1-14.3); Lymphocytes # (Auto) 2.2 K/mm3 (1.2-5.4); Lymphocytes % (Auto) 22.9 % (13.4-35.0); Mean Corpuscular HGB Conc 33 % (30-34); Mean Corpuscular Hemoglobin 30 pg (28-32); Mean Corpuscular Volume 90 fl (79-97); Monocytes # (Auto) 0.7 K/mm3 (0.0-0.8); Monocytes % (Auto) 7.3 % (0.0-7.3); Platelet Count 240 K/mm3 (140-440); Red Blood Count 2.17 M/mm3 (3.65-5.03); Red Cell Distribution Width 14.9 % (13.2-15.2)
[2017-10-14 07:00] LABS: Hematocrit 20.5 % (30.3-42.9)
--- NOTE | 2017-10-14 08:17 | Discharge Summary ---
Providers - Providers Date of Admission: 10/11/17 19:48 Date of discharge: 10/14/17 (desires d/c home) Attending physician: KAYLIE HODGSON Primary care physician: KAYLIE HODGSON Hospitalization Reason for admission: Labor Condition: Good Pertinent studies: post delivery H&H 6.5/20.5 ( started @ 10.9/30.2) pt is asymptomatic, declines transfusion at this time. will d/c home with FE PO Procedures: vaginal delivery with hemorrhage Hospital course: vaginal complicated by hemorrhage and elevated ALT/AST Disposition: DC-01 TO HOME OR SELFCARE - Discharge Diagnoses (1) Anemia Status: Acute Qualifiers: Other causes of anemia: acute posthemorrhagic (2) Preeclampsia Status: Acute Qualifiers: Trimester: third trimester Qualified Code(s): O14.93 - Unspecified pre- eclampsia, third trimester (3) hemorrhage, delivered Status: Acute (4) Spontaneous vaginal delivery Status: Acute Core Measure Documentation - Palliative Care Palliative Care/ Comfort Measures: Not Applicable - Core Measures Any of the following diagnoses?: none Exam - Constitutional Vitals: Temp Pulse Resp BP Pulse Ox 98.5 F 86 20 126/69 98 10/14/17 05:50 10/14/17 05:50 10/14/17 05:50 10/14/17 05:50 10/13/17 16:20 General appearance: Present: no acute distress, well-nourished - EENT Eyes: Present: PERRL ENT: hearing intact, clear oral mucosa - Neck Neck: Present: supple, normal ROM - Respiratory Respiratory effort: normal Respiratory: bilateral: CTA - Cardiovascular Heart Sounds: Present: S1 & S2. Absent: rub, click - Extremities Extremities: pulses symmetrical, No edema Peripheral Pulses: within normal limits - Abdominal General gastrointestinal: Present: soft, non-tender, non-distended, normal bowel sounds Female genitourinary: Present: normal - Integumentary Integumentary: Present: clear, warm, dry - Musculoskeletal Musculoskeletal: gait normal, strength equal bilaterally - Psychiatric Psychiatric: appropriate mood/affect, intact judgment & insight - Neurologic Neurologic: CNII-XII intact, moves all extremities - Additional findings Additional findings: Lochia small, fundus firm, VSSAF, , Anemia d/t blood loss - asymptomatic. Pt declines transfusion and will do FE PO and f/u 1 week in office. Plan Activity: no restrictions Diet: regular Follow up with: KAYLIE HODGSON MD [Primary Care Provider] - 7 Days (Congratulations! Please call [phone] to schedule your son's circumcision in 1 week and your visit in 4 weeks. Bring SERGEY cream to your son's appointment and await further instructions. Call for any questions or concerns. ) Prescriptions: Ferrous Sulfate [Feosol 325 MG tab] 325 mg PO TID #90 tablet Ibuprofen [Motrin 800 MG tab] 800 mg PO Q8HR PRN #30 tablet PRN Reason: Pain Lidocain2.5%/Prilocai2.5% [Emla] 5 gm TP ONCE PRN #1 tube PRN Reason: Pain
[2017-10-14] MEDS: FEOSOL PO SCH (08:18)
[2017-10-14] MEDS: NORCO 5/325 PO PRN (08:19)
[2017-10-14] MEDS: PRENATAL VITAMIN PO SCH (12:30)
[2017-10-14 14:58] VITALS: BP 108/68
== END 2017-10-14 15:00 | disposition home or self-care (01) | DRG 774 ==
LOC: TRG 18:47 → LD 19:48 → OB 10-12 20:51
PROVIDERS: ADMIT Obstetrics & Gynecology; ATTEND Obstetrics & Gynecology
PROC: 10E0XZZ Delivery of Products of Conception, External Approach (ICD-10-PCS; 2017-10-12)
PROC: 3E0R3BZ Introduction of Anesthetic Agent into Spinal Canal, Percutaneous Approach (ICD-10-PCS; 2017-10-12)
PROC: 00HU33Z Insertion of Infusion Device into Spinal Canal, Percutaneous Approach (ICD-10-PCS; 2017-10-12)
PROC: 3E033VJ Introduction of Other Hormone into Peripheral Vein, Percutaneous Approach (ICD-10-PCS; 2017-10-12)
PROC: 10H07YZ Insertion of Other Device into Products of Conception, Via Natural or Artificial Opening (ICD-10-PCS; 2017-10-12)
PROC: 3E0234Z Introduction of Serum, Toxoid and Vaccine into Muscle, Percutaneous Approach (ICD-10-PCS; principal; 2017-10-13)
DX: O42.92 Full-term premature rupture of membranes, unspecified as to length of time between rupture and onset of labor (principal); O72.1 Other immediate postpartum hemorrhage; O77.0 Labor and delivery complicated by meconium in amniotic fluid; O99.334 Smoking (tobacco) complicating childbirth; F17.200 Nicotine dependence, unspecified, uncomplicated; Z23 Encounter for immunization; Z37.0 Single live birth; Z3A.40 40 weeks gestation of pregnancy; O99.344 Other mental disorders complicating childbirth; F31.9 Bipolar disorder, unspecified; O90.81 Anemia of the puerperium; D62 Acute posthemorrhagic anemia; Z53.29 Procedure and treatment not carried out because of patient's decision for other reasons; O14.94 Unspecified pre-eclampsia, complicating childbirth
CPT/HCPCS: 36415; 80307; 81001; 82565; 82962; 83615; 83735; 84450; 84460; 84550; 85014; 85018; 85025; 85027; 86592; 86850; 86900; 86901; 86920; 87806; 88307; 99406; J0290; J2590; J3475; J7120

== ENCOUNTER 2017-10-18 02:45 | Emergency (ER) | payer OTHER ==
[2017-10-18 04:23] LABS: Basophils # (Auto) 0.1 K/mm3 (0.0-0.1); Basophils % (Auto) 0.4 % (0.0-1.8); Eosinophils # (Auto) 0.3 K/mm3 (0.0-0.4); Eosinophils % (Auto) 2.5 % (0.0-4.3); Hematocrit 25.9 % (30.3-42.9); Hemoglobin 8.4 gm/dl (10.1-14.3); Mean Corpuscular HGB Conc 32 % (30-34); Mean Corpuscular Hemoglobin 29 pg (28-32); Mean Corpuscular Volume 91 fl (79-97); Monocytes # (Auto) 0.9 K/mm3 (0.0-0.8); Monocytes % (Auto) 6.4 % (0.0-7.3); Platelet Count 584 K/mm3 (140-440); Red Blood Count 2.86 M/mm3 (3.65-5.03)
[2017-10-18 04:50] LABS: Bacteria,Urine 1+ /HPF (Negative); Bilirubin,Urine NEG (Negative); Blood,Urine LG (Negative); Color,Urine Yellow (Yellow); Mucus,Urine FEW /HPF; Urobilinogen,Urine < 2.0 mg/dL (<2.0)
[2017-10-18 04:53] LABS: RBC,Urine > 182.0 /HPF (0.0-6.0); WBC,Urine > 182.0 /HPF (0.0-6.0)
[2017-10-18 05:59] VITALS: BP 127/77
--- NOTE | 2017-10-18 07:02 | Discharge Summary ---
Providers - Providers Date of discharge: 10/18/17 Primary care physician: EVIE HERRERA Hospitalization Condition: Good Hospital course: This is a 32-year-old female 1 para 1 status post vaginal delivery on . Delivery was complicated by hemorrhage of approximately 1000 mL's of blood. Bleeding responded to uterine massage and uterotonic agents. Her postoperative course is uncomplicated and she was discharged home with a hemoglobin of 6.9 because she refused a blood transfusion and was stable. Patient called complaining of heavy bleeding passing clots. Once taken with the patient denies she states she's been bleeding since delivery however her hemoglobin is now 8.5. She presented with what appears to be a large clot in a plastic container that was sent to pathology. With unremarkable exam and her hemoglobin improving patient was allow home now she has no point to follow with me on Friday for further evaluation. Disposition: TO HOME OR SELFCARE - Discharge Diagnoses (1) Vaginal bleeding Status: Acute Core Measure Documentation - Palliative Care Palliative Care/ Comfort Measures: Not Applicable - Core Measures Any of the following diagnoses?: none Exam - Constitutional Vitals: Temp Pulse Resp BP Pulse Ox 98.0 F 105 H 18 127/77 100 10/18/17 03:20 10/18/17 05:45 10/18/17 06:24 10/18/17 05:45 10/18/17 06:24 General appearance: Present: no acute distress - Respiratory Respiratory effort: normal - Extremities Extremities: no ischemia, No edema - Abdominal General gastrointestinal: Present: soft, non-tender Female genitourinary: Present: other (speculum exam revealed no vaginal bleeding. Normal lochia was present.) - Integumentary Integumentary: Present: clear, warm, dry Plan Activity: other (NO sex, stay at home except for MD visit) Weight Bearing Status: Full Weight Bearing Diet: regular Special Instructions: smoking cessation, no heavy lifting (>25#) Follow up with: EVIE HERRERA MD [Primary Care Provider] - 3-5 Days KAYLIE HODGSON MD [Staff Physician] - ([place] office 10/20/2017 at 1345)
--- NOTE | 2017-10-18 07:41 | Discharge Summary ---
Providers - Providers Date of discharge: 10/18/17 Primary care physician: EVIE HERRERA Hospitalization Condition: Good Disposition: DC-01 TO HOME OR SELFCARE Core Measure Documentation - Palliative Care Palliative Care/ Comfort Measures: Not Applicable - Core Measures Any of the following diagnoses?: none Exam - Constitutional Vitals: Temp Pulse Resp BP Pulse Ox 98.0 F 105 H 18 127/77 100 10/18/17 03:20 10/18/17 05:45 10/18/17 06:24 10/18/17 05:45 10/18/17 06:24 Plan Activity: other (no sex, stay at home except for MD visit) Weight Bearing Status: Full Weight Bearing Diet: regular Special Instructions: smoking cessation, no heavy lifting (>25#) Follow up with: EVIE HERRERA MD [Primary Care Provider] - 3-5 Days KAYLIE HODGSON MD [Staff Physician] - ([place] office 10/20/2017 at 1345)
== END 2017-10-18 06:49 | disposition home or self-care (01) ==
LOC: ED 02:45
DX: O72.1 Other immediate postpartum hemorrhage (principal); Z37.0 Single live birth
CPT/HCPCS: 36415; 81001; 84702; 85025; 86850; 86900; 86901; 88305; 99283

== ENCOUNTER 2019-01-20 17:17 | Inpatient (IN) | payer OTHER ==
--- NOTE | 2019-01-20 20:01 | History and Physical Report ---
History of Present Illness Date of examination: 01/20/19 Date of admission: 01/20/19 Chief complaint: leaking of fluid History of present illness: [facility] present to [facility] c/o leaking of fluid that started yesterday. Pt did not show s/sx of leaking in triage but MARLA was <5cm on sono. Pt admitted for IOL due to oligohydraminos EDC Confirmation: 01/17/2019 Gestational Age: 14 4/7 weeks Past History : 8 Term Births: 1 Living Children: 1 Para: 1 Spont. Ab: 6 # 1 Delivery date: 2012 Weeks Gestation: 6-9 Delivery type: SAB # 2 Delivery date: 2012 Weeks Gestation: 6-9 Delivery type: SAB # 3 Delivery date: 2013 Weeks Gestation: 6-9 Delivery type: SAB # 4 Delivery date: 2015 Weeks Gestation: 6-9 Delivery type: SAB # 5 Delivery date: 2015 Weeks Gestation: 6-9 Delivery type: SAB # 6 Delivery date: 2016 Weeks Gestation: 6-9 Delivery type: SAB # 7 Delivery date: 10/12/2017 Weeks Gestation: 40 Delivery type: Vaginal Anesthesia type: epidural Delivery location: [facility] weight: 8.81 Comments: PPH;Meconium;Prolong rupture membranes Past Medical History: Reviewed history from 02/25/2017 and no changes required: hypoglycemic Past Surgical History: Reviewed history from 02/25/2017 and no changes required: Tonsillectomy Past Medical History Abnormal PAP: negative ZBIGNIEW Exposure: negative Infertility: negative Uterine Anomaly: negative Uterine Surgery (not C/S): negative Other Gynecologic Problems: negative Infection History Hx of STD: none Varicella/Chicken Pox Status: Previous Disease Genetic History Congenital Heart Defect: Mom: no Dad: no Navin Disease: Mom: no Dad: no Thalassemia Mom: no Dad: no Neural Tube Defect Mom: no Dad: no Down's Syndrome Mom: no Dad: no Rolando-Sachs Mom: no Dad: no Sickle Cell Disease/Trait Mom: no Dad: no Hemophilia Mom: no Dad: no Muscular Dystrophy Mom: no Dad: no Cystic Fibrosis Mom: no Dad: no Hemphill Chorea Mom: no Dad: no Mental Retardation Mom: no Dad: no Fragile X Mom: no Dad: no Other Genetic/Chromosomal Disorder Mom: no Dad: no Child w/other defect Mom: no Dad: no Active Medications (reviewed today): PROMETHAZINE HCL 25 MG ORAL TABLET (PROMETHAZINE HCL) 1 tab po q6hrs prn PLUS 27-1 MG ORAL TABLET ( VIT-FE FUMARATE-FA) 1 po KEFLEX 500 MG X'S 2 DAILY () PROZAC () ADDERALL () Current Allergies (reviewed today): No known allergies Past History Past Medical History: other (anxiety) Past Surgical History: other (see hpi) 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 (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 hpi) Family/Genetic History: other (see hpi) Social history: no significant social history, single - Obstetrical History Expected Date of Delivery: 01/17/19 Actual Gestation: 40 Week(s) 3 Day(s) : 8 Para: 1 Spontaneous Abortions: 6 Number of Living Children: 1 Medications and Allergies Allergies Allergy/AdvReac Type Severity Reaction Status Date / Time coconut Allergy Anaphylaxis Verified 10/11/17 20:22 Home Medications Medication Instructions Recorded Confirmed Last Taken Type Vit-Fe Fumar-FA [ 1 tab PO QDAY 09/25/17 10/11/17 10/11/17 16:00 History Vitamin] Docusate Sodium [Colace CAP] 100 mg PO BID #60 capsule 10/14/17 Unknown Rx Ferrous Sulfate [Feosol 325 MG tab] 325 mg PO TID #90 tablet 10/14/17 Unknown Rx Lidocain2.5%/Prilocai2.5% [Emla] 5 gm TP ONCE PRN #1 tube 10/14/17 Unknown Rx - Vital Signs Vital signs: Vital Signs Pulse Pulse Ox 108 H 98 01/20/19 17:45 01/20/19 17:45 Temp Pulse Resp BP Pulse Ox 98.2 F 100 H 20 98 01/20/19 17:54 01/20/19 18:05 01/20/19 17:54 01/20/19 18:05 - Physical Exam Cardiovascular: Normal S1, Normal S2 Lungs: Positive: Normal air movement Abdomen: Positive: normal appearance, soft. Negative: distention, tenderness, guarding Genitourinary (Female): Positive: other (see triage nurse exam.) Vulva: both: normal - Obstetrical FHR: category 1 Results All other labs normal. Assessment and Plan - Patient Problems (1) Oligohydramnios Current Visit: Yes Status: Acute Qualifiers: Fetus number: single or unspecified fetus Trimester: third trimester Qualified Code(s): O41.03X0 - Oligohydramnios, third trimester, not applicable or unspecified Plan to address problem: -admit -IOL -anticipate (2) 40 weeks gestation of Current Visit: No Status: Acute
[2019-01-20] MEDS ORDERED: ePHEDrine SULFATE 50 MG/1 ML INJ IV PRN (20:06)
[2019-01-20] MEDS ORDERED: TERBUTALINE 1 MG/1 ML INJ SUB-Q PRN (20:06)
[2019-01-20] MEDS ORDERED: MINERAL OIL 30 ML ORAL LIQD PO PRN (20:06)
[2019-01-20] MEDS ORDERED: LIDOCAINE (2%) 20 MG/1 ML VIAL 20 ML MDV INFILTRATI ONE (20:06)
[2019-01-20] MEDS ORDERED: fentaNYL 100 MCG/2 ML INJ IV PRN (20:06)
[2019-01-20] MEDS ORDERED: TERBUTALINE 1 MG/1 ML INJ IVP PRN (20:06)
--- NOTE | 2019-01-20 20:31 | Ultrasound Report ---
Limited OB ultrasound for amniotic fluid volume FINDINGS: The MARLA is diminished at 4.1 cm. Signer Name: Benedict Perez MD Signed: 01/20/2019 8:26 PM Workstation Name: [email or web address]
[2019-01-20] MEDS ORDERED: OXYTOCIN DRIP 30 UNITS/500 ML BAG IV SCH ×2 (21:00)
[2019-01-20 22:21] LABS: Hematocrit 34.4 % (30.3-42.9); Hemoglobin 11.6 gm/dl (10.1-14.3); Mean Corpuscular HGB Conc 34 % (30-34); Mean Corpuscular Volume 91 fl (79-97); Platelet Count 311 K/mm3 (140-440); Red Blood Count 3.78 M/mm3 (3.65-5.03); Red Cell Distribution Width 14.3 % (13.2-15.2)
[2019-01-21] MEDS: LACTATED RINGERS 1,000 ML IV SCH ×2 (00:03→05:52)
--- NOTE | 2019-01-21 05:46 | Progress Note ---
Assessment and Plan Pt states she feels mild cramping with contractions. SVE 4,70,-1 Internals placed Moderate amt of fluid noted, clear. Pitocin per protocol. Fluid bolus for epidural started. All questions addressed. Subjective - Subjective Date of service: 01/21/19 (pt "I just want to be sure I get my epidural.") Principal diagnosis: IUP @ 40w4d with oligo vs prolong ROM Patient reports: movement normal Objective - Vital Signs Vital Signs: Vital Signs - 12hr 01/20/19 01/20/19 01/20/19 17:45 17:50 17:54 Temperature 98.2 F Pulse Rate 108 H 99 H Respiratory 20 Rate Blood Pressure O2 Sat by Pulse 98 99 Oximetry 01/20/19 01/20/19 01/20/19 17:55 18:00 18:05 Temperature Pulse Rate 103 H 99 H 100 H Respiratory Rate Blood Pressure O2 Sat by Pulse 98 98 98 Oximetry 01/20/19 01/20/19 01/21/19 23:53 23:58 00:03 Temperature Pulse Rate 89 91 H 89 Respiratory Rate Blood Pressure 115/59 O2 Sat by Pulse 95 96 96 Oximetry 01/21/19 01/21/19 01/21/19 00:08 00:13 00:18 Temperature Pulse Rate 90 88 89 Respiratory Rate Blood Pressure O2 Sat by Pulse 96 97 96 Oximetry 01/21/19 01/21/19 01/21/19 00:19 00:23 00:28 Temperature Pulse Rate 88 97 H 101 H Respiratory Rate Blood Pressure 119/58 O2 Sat by Pulse 96 95 Oximetry 01/21/19 01/21/19 01/21/19 00:30 00:33 00:38 Temperature Pulse Rate 98 H 104 H 98 H Respiratory Rate Blood Pressure O2 Sat by Pulse 94 95 96 Oximetry 01/21/19 01/21/19 01/21/19 00:43 00:48 00:49 Temperature Pulse Rate 101 H 99 H 101 H Respiratory Rate Blood Pressure O2 Sat by Pulse 95 95 94 Oximetry 01/21/19 01/21/19 01/21/19 00:51 00:53 00:55 Temperature Pulse Rate 99 H 99 H 100 H Respiratory Rate Blood Pressure 135/70 O2 Sat by Pulse 94 94 Oximetry 01/21/19 01/21/19 01/21/19 00:58 01:03 01:04 Temperature Pulse Rate 100 H 101 H 102 H Respiratory Rate Blood Pressure O2 Sat by Pulse 95 95 94 Oximetry 01/21/19 01/21/19 01/21/19 01:08 01:13 01:18 Temperature Pulse Rate 101 H 98 H 100 H Respiratory Rate Blood Pressure O2 Sat by Pulse 95 95 95 Oximetry 01/21/19 01/21/19 01/21/19 01:20 01:50 02:20 Temperature Pulse Rate 104 H 86 88 Respiratory Rate Blood Pressure 139/64 116/55 123/68 O2 Sat by Pulse 94 Oximetry 01/21/19 01/21/19 01/21/19 02:50 03:20 03:50 Temperature Pulse Rate 99 H 97 H 84 Respiratory Rate Blood Pressure 139/82 132/87 112/55 O2 Sat by Pulse Oximetry - Exam Breasts: deferred Cardiovascular: Regular rate Lungs: Normal air movement Abdomen: Present: normal appearance, soft. Absent: distention, tenderness Vulva: both: normal Uterus: Present: normal FHR: auscultation normal, category 1 Uterine Contraction Monitor Mode: Internal Cervical Dilatation: 4 (Internals applied) Cervical Effacement Percentage: 70 station: -1 Uterine Contraction Pattern: Regular Uterine Tone Measurement Phase: Resting Uterine Contraction Intensity: Mild Extremities: edema Deep Tendon Reflex Grade: Normal +2 - Labs Labs: Laboratory Results - last 24 hr 01/20/19 01/20/19 21:20 21:20 WBC 10.6 RBC 3.78 Hgb 11.6 Hct 34.4 MCV 91 MCH 31 MCHC 34 RDW 14.3 Plt Count 311 Blood Type O POSITIVE Antibody Screen Negative
[2019-01-21] MEDS ORDERED: ONDANSETRON 4 MG/2 ML INJ ONE (08:05)
[2019-01-21] MEDS ORDERED: NALOXONE 2 MG/2 ML INJ IV PRN (08:15)
[2019-01-21] MEDS ORDERED: ePHEDrine SULFATE 50 MG/1 ML INJ IV PRN (08:15)
[2019-01-21] MEDS ORDERED: OXYTOCIN DRIP 30 UNITS/500 ML BAG IV SCH (09:00)
[2019-01-21] MEDS ORDERED: ONDANSETRON 4 MG/2 ML INJ IV PRN (09:00)
[2019-01-21] MEDS ORDERED: fentaNYL-BUPIV 2 MCG/ML-0.125% 200 MCG/100 ML BAG EPIDURAL SCH (09:00)
[2019-01-21] MEDS ORDERED: ONDANSETRON 4 MG/2 ML INJ IV ONE (09:30)
[2019-01-21] MEDS ORDERED: miSOPROStol 200 MCG TAB ONE (12:21)
[2019-01-21] MEDS ORDERED: METHYLERGONOVINE MALEATE 0.2 MG/ML VIAL IM ONE ×2 (12:21→14:00)
[2019-01-21] MEDS ORDERED: LIDOCAINE (2%) 20 MG/1 ML VIAL 20 ML MDV INFILTRATI ONE (12:24)
[2019-01-21] MEDS: OXYTOCIN 20 UNIT/1000ML DRIP 20 UNITS/1,000 ML BAG IV SCH ×2 (12:35→14:09)
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
[2019-01-21] MEDS ORDERED: diphenhydrAMINE 25 MG CAP PO PRN (14:02)
[2019-01-21] MEDS ORDERED: ACETAMINOPHEN 325 MG TAB PO PRN (14:02)
[2019-01-21] MEDS ORDERED: LANOLIN/ZINC/DIMETHICONE (LANSINOH) 7 GM TP PRN (14:02)
[2019-01-21] MEDS ORDERED: WITCH HAZEL/ GLYCERIN PAD TP PRN (14:02)
[2019-01-21] MEDS ORDERED: MAGNESIUM HYDROXIDE (MOM) ORAL LIQD UDC PO PRN (14:02)
[2019-01-21] MEDS ORDERED: PROMETHAZINE 25 MG TAB PO PRN (14:02)
--- NOTE | 2019-01-21 14:08 | Procedure Note ---
OB Delivery Note - Delivery Date of Delivery: 01/21/19 [employer]: RADHA MOTTA Estimated blood loss: 500cc - Vaginal Delivery presentation: vertex Delivery position: OA Intrapartum events: other(please specify) (oligo) Delivery induction: oxytocin Delivery augmentation: pitocin Delivery monitor: internal FHT, internal uterine Route of delivery: Delivery placenta: spontaneous Delivery cord: 3 umbilical vessels Episiotomy: none Delivery laceration: none Anesthesia: epidural Delivery comments: live born male over intact perineum. Baby skin to skin on mom's abdomen. Cord clamped and cut after delay. Cord blood obtained. Placenta and membrane delivered complete and intact. Due to pt's prior hx of PPH Methergine was given along with Pit IVFs. 8/9, EBL 500, Wgt 8-1. FF below UMB Lochia mod. Will continue to monitor Mom and baby stable remain LDR - A at 1 minute: 8 at 5 minutes: 9 Infant Gender: Male (wgt 8-1)
[2019-01-21] MEDS: IBUPROFEN 800 MG TAB PO SCH ×2 (17:38→23:45)
[2019-01-21] MEDS: DOCUSATE SODIUM 100 MG CAP PO SCH (23:45)
[2019-01-22 02:30] LABS: Hematocrit 30.9 % (30.3-42.9); Hemoglobin 10.4 gm/dl (10.1-14.3)
[2019-01-22] MEDS ORDERED: TETANUS,DIPH,PERTUSS(ACELL) VACCINE 0.5 ML SYRINGE IM ONE (06:02)
[2019-01-22] MEDS: IBUPROFEN 800 MG TAB PO SCH (06:42)
--- NOTE | 2019-01-22 08:12 | Discharge Summary ---
Providers - Providers Date of Admission: 01/20/19 20:06 Date of discharge: 01/22/19 (Pt agrees to D/C home today) Attending physician: LEONARDO ZAMARRIPA 01/21/19 14:28 Consult to Mental Health [CONS] Routine Reason For Exam: PP depression last delivery; QOL affected Place consult to:: [place] Primary care physician: LEONARDO ZAMARRIPA Hospitalization Reason for admission: IOL for oligo Condition: Good Pertinent studies: H/H 10/ s/p Procedures: Uncomplicated s/p IOL for oligo Hospital course: Uncomplicated and PP course. Pt has hx of PPD and requests medication for depression prior to d/c to avoid PPD. Currently denies feelings of depression and thoughts of self-harm or harm towards others. Pt interested in counseling services PP. Disposition: - TO HOME OR SELFCARE - Discharge Diagnoses (1) Spontaneous vaginal delivery Status: Acute (2) History of depression Status: Acute Core Measure Documentation - Palliative Care Palliative Care/ Comfort Measures: Not Applicable - Core Measures Any of the following diagnoses?: none Exam - Constitutional Vitals: Temp Pulse Resp BP Pulse Ox 97.4 F L 81 18 110/52 98 01/22/19 01:52 01/22/19 01:52 01/22/19 01:52 01/22/19 01:52 01/22/19 01:52 General appearance: Present: no acute distress, well-nourished - EENT Eyes: Present: PERRL ENT: hearing intact, clear oral mucosa - Neck Neck: Present: supple, normal ROM - Respiratory Respiratory effort: normal Respiratory: bilateral: CTA - Cardiovascular Heart Sounds: Present: S1 & S2. Absent: rub, click - Extremities Extremities: pulses symmetrical, No edema Peripheral Pulses: within normal limits - Abdominal General gastrointestinal: Present: soft, non-tender, non-distended Female genitourinary: Present: normal - Integumentary Integumentary: Present: clear, warm, dry - Musculoskeletal Musculoskeletal: gait normal, strength equal bilaterally - Psychiatric Psychiatric: appropriate mood/affect, intact judgment & insight - Neurologic Neurologic: CNII-XII intact, moves all extremities Plan Activity: no restrictions Weight Bearing Status: Weight Bear as Tolerated Diet: regular Follow up with: LEONARDO ZAMARRIPA MD [Primary Care Provider] - 7 Days (Congratulations! Please call our office [phone] to schedule your son's circumcision. Bring EMLA cream to appointment for further instructions. Also call our office to schedule your 4-week visit. Call with any questions or concerns. ) Prescriptions: Lidocain2.5%/Prilocai2.5% [Emla] 5 gm TP ONCE PRN #1 tube PRN Reason: Pain Ibuprofen [Motrin 800 MG tab] 800 mg PO Q8HR PRN #30 tablet PRN Reason: Pain Sertraline [Zoloft] 50 mg PO QDAY #60 tablet
[2019-01-22] MEDS: DOCUSATE SODIUM 100 MG CAP PO SCH (09:17)
[2019-01-22] MEDS ORDERED: PRENATAL VIT27-FE FUMARATE-FOLIC ACID VIT TAB PO SCH (10:00)
[2019-01-22] MEDS ORDERED: MEASLES, MUMPS & RUBELLA 12,500 UNIT/0.5 ML VACCINE SUB-Q ONE (14:02)
[2019-01-22 15:38] VITALS: BP 132/78
== END 2019-01-22 16:25 | disposition home or self-care (01) | DRG 775 ==
LOC: TRG 17:17 → LD 20:06 → TRG 20:06 → OB 01-21 15:10
PROVIDERS: ADMIT Obstetrics & Gynecology; ATTEND Obstetrics & Gynecology
PROC: 10E0XZZ Delivery of Products of Conception, External Approach (ICD-10-PCS; principal; 2019-01-21)
PROC: 3E033VJ Introduction of Other Hormone into Peripheral Vein, Percutaneous Approach (ICD-10-PCS; 2019-01-21)
PROC: 3E0R3BZ Introduction of Anesthetic Agent into Spinal Canal, Percutaneous Approach (ICD-10-PCS; 2019-01-21)
PROC: 00HU33Z Insertion of Infusion Device into Spinal Canal, Percutaneous Approach (ICD-10-PCS; 2019-01-21)
PROC: 3E0234Z Introduction of Serum, Toxoid and Vaccine into Muscle, Percutaneous Approach (ICD-10-PCS; 2019-01-22)
DX: O41.03X0 Oligohydramnios, third trimester, not applicable or unspecified (principal); O99.344 Other mental disorders complicating childbirth; F32.9 Major depressive disorder, single episode, unspecified; O99.214 Obesity complicating childbirth; Z79.899 Other long term (current) drug therapy; Z3A.40 40 weeks gestation of pregnancy; Z37.0 Single live birth; Z23 Encounter for immunization
CPT/HCPCS: 36415; 59025; 76815; 85014; 85018; 85027; 86850; 86900; 86901; 96360; 96365; 96366; G0378; J2210; J2405; J2590; J7120